=== PATIENT | male | born 1960 | race American Indian/Alaskan Native ===

== ENCOUNTER 2017-07-31 14:02 | Inpatient (IN) | payer MEDICARE ==
--- NOTE | 2017-07-31 14:44 | History and Physical Report ---
History of Present Illness Chief complaint: I cant stop drinking, and i feel sick History of present illness: 56 YO Male with ETOH Abuse, HTN, HIV, Schizophrenia, Depression, Nicotine Dependence [facility] Withdrawl. Pt seen and evaluated upon arrival. Pt states that he drinks alcohol daily, and will drink whatever he can get. Pt states that his last drink was the day prior to admission. Pt acknowledges that he feels restless, agitated, Anxious, and has difficulty picking up objects due to his hands shaking. Pt also acknowledges loss of appetite, auditory and visual hallucinations, sweating. Pt has experienced the aforementioned symptoms over the past 1-2 days with worsening symptoms over the past 12 hours. Pt acknowledges insomnia and has a headache at this time. Pt found to be in distress, and with ETOH withdrawl. Pt denies SI/HI, or plan. Pt denies desire to harm himself or others. Pt admitted to [facility] for medical [facility]. Past History Past Medical History: HIV/AIDS, hypertension, other (schizophrenia, depression) Past Surgical History: cholecystectomy, hernia repair Social history: smoking, alcohol abuse Family history: hypertension Medications and Allergies Allergies Allergy/AdvReac Type Severity Reaction Status Date / Time No Known Allergies Allergy Unverified 07/31/17 14:18 Home Medications Medication Instructions Recorded Confirmed Last Taken Type Amlodipine Besylate [Norvasc] 10 mg PO 07/31/17 Unknown History Calcium Carbonate [Calcium] 200 mg PO 07/31/17 Unknown History Citalopram Hydrobromide [Celexa] 40 mg PO 07/31/17 Unknown History Darunavir/Cobicistat [Prezcobix 1 each PO 07/31/17 Unknown History 800 mg-150 mg Tablet] Emtricitabine/Tenofov Alafenam 1 each PO 07/31/17 Unknown History [Descovy 200-25 mg Tablet] Mirtazapine [Remeron] 30 mg PO 07/31/17 Unknown History Potassium Chloride 20 meq PO 07/31/17 Unknown History Quetiapine Fumarate [Seroquel Xr] 400 mg PO 07/31/17 Unknown History SEROquel 07/31/17 Unknown History Review of Systems Constitutional: weakness, no weight loss, no weight gain, no fever, no chills Ears, nose, mouth and throat: no ear pain, no ear discharge, no tinnitis, no decreased hearing, no nose pain, no nasal congestion, no nasal discharge Cardiovascular: no chest pain, no orthopnea, no palpitations, no rapid/ irregular heart beat, no edema, no syncope Respiratory: no cough, no cough with sputum, no excessive sputum, no hemoptysis , no shortness of breath Gastrointestinal: nausea, no vomiting, no diarrhea, no constipation, no change in bowel habits, no hematemesis, no coffee ground emesis, no BRBPR, no melena, no hematochezia, no loss of appetite Genitourinary Male: no dysuria, no hematuria, no flank pain, no discharge, no urinary frequency, no urinary hesitancy Rectal: no pain, no incontinence, no bleeding Musculoskeletal: no neck stiffness, no neck pain, no shooting arm pain, no arm numbness/tingling, no low back pain, no shooting leg pain Integumentary: no rash, no pruritis, no redness, no sores, no wounds Neurological: tremors, headaches, no numbness, no tingling, no seizures, no syncope, no ataxia, no lack of coordination, no convulsions, no aphasia, no change in speech, no change in mentation Psychiatric: anxiety, insomnia, change in appetite, hallucinations, depression, irritability, sadness/tearfullness, mood swings, no memory loss, no change in sleep habits, no hypersomnia Endocrine: no cold intolerance, no heat intolerance, no polyphagia, no excessive thirst, no polydipsia, no polyuria, no nocturia, no excessive sweating Hematologic/Lymphatic: no easy bruising, no easy bleeding, no lymphadenopathy, no lymphedema Allergic/Immunologic: no urticaria, no allergic rhinitis, no persistent infections, no anaphylaxis, no angioedema Exam - Constitutional General appearance: Present: mild distress - EENT Eyes: Present: PERRL ENT: hearing intact, clear oral mucosa - Neck Neck: Present: supple, normal ROM - Respiratory Respiratory effort: normal Respiratory: bilateral: CTA - Cardiovascular Heart Sounds: Present: S1 & S2. Absent: rub, click - Extremities Extremities: pulses symmetrical, No edema Peripheral Pulses: within normal limits - Abdominal General gastrointestinal: Present: soft, non-tender, non-distended, normal bowel sounds Male genitourinary: Present: normal - Integumentary Integumentary: Present: clear, dry, decreased turgor - Musculoskeletal Musculoskeletal: gait normal, strength equal bilaterally - Psychiatric Psychiatric: agitated - Neurologic Neurologic: CNII-XII intact, moves all extremities Results - Labs CBC & Chem 7: 07/31/17 15:58 Assessment and Plan - Patient Problems (1) Alcohol withdrawal Current Visit: Yes Status: Acute Qualifiers: Complication of substance-induced condition: with perceptual disturbance Qualified Code(s): F10.232 - Alcohol dependence with withdrawal with perceptual disturbance Plan to address problem: ETOH Withdrawl protocol: Librium taper, Banana bag, anti emetic therapy, CBC, CMP, BAL. (2) Nicotine dependence Current Visit: Yes Status: Acute Qualifiers: Substance use status: in withdrawal Plan to address problem: supportive care, Pt declines to pick quit date, smoking cessation counseling. (3) HIV (human immunodeficiency virus infection) Current Visit: Yes Status: Acute Plan to address problem: REsume antiretroviral therapy, outpatient ID F/U (4) HTN (hypertension) Current Visit: Yes Status: Acute Qualifiers: Hypertension type: essential hypertension Qualified Code(s): I10 - Essential (primary) hypertension Plan to address problem: Monitor BP q shift, IV hydralazine prn (5) Schizophrenia Current Visit: Yes Status: Acute Qualifiers: Schizophrenia type: disorganized schizophrenia Qualified Code(s): F20.1 - Disorganized schizophrenia Plan to address problem: Resume prehospital medication, supportive care, (6) DVT prophylaxis Current Visit: Yes Status: Acute Plan to address problem: SCD to BLE while in bed
[2017-07-31] MEDS ORDERED: SODIUM CHLORIDE FLUSH SYRINGE 10 ML IV PRN (15:00)
[2017-07-31] MEDS ORDERED: VISTARIL PO PRN (15:00)
[2017-07-31] MEDS ORDERED: TYLENOL PO PRN (15:00)
[2017-07-31] MEDS ORDERED: BENTYL PO PRN (15:00)
[2017-07-31] MEDS ORDERED: ATIVAN IV PRN (15:00)
[2017-07-31] MEDS ORDERED: PROVENTIL IH PRN (15:00)
[2017-07-31] MEDS ORDERED: ROBAXIN PO PRN (15:00)
[2017-07-31] MEDS ORDERED: ZOFRAN IV PRN (15:00)
[2017-07-31] MEDS: 1: FOLVITE 1 MG, INFUVITE 10 ML, VITAMIN B-1 100 MG in NACL 0.9% 1000 ML 988.8 ML 2: NA IV SCH (16:26)
[2017-07-31 16:32] LABS: Basophils % (Auto) 0.3 % (0.0-1.8); Eosinophils # (Auto) 0.2 K/mm3 (0.0-0.4); Eosinophils % (Auto) 3.5 % (0.0-4.3); Hematocrit 38.1 % (35.5-45.6); Hemoglobin 12.4 gm/dl (11.8-15.2); Lymphocytes # (Auto) 1.8 K/mm3 (1.2-5.4); Lymphocytes % (Auto) 32.3 % (13.4-35.0); Mean Corpuscular HGB Conc 33 % (32-34); Mean Corpuscular Hemoglobin 36 pg (28-32); Mean Corpuscular Volume 111 fl (84-94); Monocytes # (Auto) 0.5 K/mm3 (0.0-0.8); Monocytes % (Auto) 8.1 % (0.0-7.3); Platelet Count 167 K/mm3 (140-440); Red Blood Count 3.45 M/mm3 (3.65-5.03)
[2017-07-31 16:36] LABS: Alanine Aminotransferase 23 units/L (7-56); Albumin 3.7 g/dL (3.9-5); BUN/Creatinine Ratio 13; Blood Urea Nitrogen 10 mg/dL (9-20); Calcium 8.5 mg/dL (8.4-10.2); Hemolysis Index 12
[2017-07-31 17:09] LABS: Amphetamine Screen,Urine PRESUMPTIVE NEGATIVE; Benzodiazepines Screen,Urine PRESUMPTIVE NEGATIVE; Cannabinoid Screen,Urine PRESUMPTIVE NEGATIVE; Cocaine Screen,Urine PRESUMPTIVE NEGATIVE; Methadone Screen,Urine PRESUMPTIVE NEGATIVE; Opiate Screen,Urine PRESUMPTIVE NEGATIVE
[2017-07-31] MEDS: LIBRIUM PO SCH ×2 (17:20→23:41)
[2017-07-31] MEDS: PEPCID PO SCH (21:06)
[2017-07-31] MEDS: SODIUM CHLORIDE FLUSH SYRINGE 10 ML IV SCH (21:06)
--- NOTE | 2017-07-31 22:47 | XRay Report ---
FINAL REPORT PROCEDURE: XR CHEST 1V AP TECHNIQUE: Chest radiograph anteroposterior view. CPT 82153 HISTORY: dypsnea COMPARISON: No prior studies are available for comparison. FINDINGS: Limited study due to suboptimal inspiration and patient rotation to the right.. Subsegment atelectatic changes are noted in bilateral lung bases. Bilateral pleural spaces are clear. Cardiac size is within normal limits. IMPRESSION: Limited study. Subsegmental atelectatic changes bilateral lung bases. Any underlying infiltrates cannot be excluded. A two view chest study is recommended whenever the patient's condition permits..
[2017-08-01] MEDS: 1: FOLVITE 1 MG, INFUVITE 10 ML, VITAMIN B-1 100 MG in NACL 0.9% 1000 ML 988.8 ML 2: NA IV SCH ×3 (01:30→18:56)
[2017-08-01] MEDS: LIBRIUM PO SCH ×2 (05:00→11:49)
[2017-08-01] MEDS ORDERED: NACL 0.9% 1000 ML 1,000 ML ONE (08:09)
[2017-08-01] MEDS: PEPCID PO SCH ×3 (08:16→21:16)
[2017-08-01] MEDS: SODIUM CHLORIDE FLUSH SYRINGE 10 ML IV SCH ×3 (08:18→21:17)
[2017-08-02] MEDS ORDERED: NACL 0.9% 1000 ML 1,000 ML ONE ×2 (04:14→08:58)
[2017-08-02] MEDS: 1: FOLVITE 1 MG, INFUVITE 10 ML, VITAMIN B-1 100 MG in NACL 0.9% 1000 ML 988.8 ML 2: NA IV SCH ×3 (04:28→16:34)
--- NOTE | 2017-08-02 08:23 | Progress Note ---
Assessment and Plan Assessment and plan: Patient is a 56 yo man with ETOH Abuse, HTN, HIV, Schizophrenia, Depression, Nicotine Dependence [facility]. [facility] ([facility] -Alcohol withdrawal: ETOH Withdrawl protocol: Librium taper, Banana bag, anti emetic therapy, CBC, CMP, BAL. -Nicotine dependence: supportive care, Pt declines to pick quit date, smoking cessation counseling. -HIV (human immunodeficiency virus infection): REsume antiretroviral therapy, outpatient ID F/U - HTN (hypertension): Monitor BP q shift, IV hydralazine prn -Schizophrenia: He denies SI/HI, Resume prehospital medication, supportive care , -DVT prophylaxis: ambulation, SCD to BLE while in bed History Interval history: Patient was seen and examined. Follow-up on current diagnosis. Overnight uneventful. Patient denies any chest pain, shortness breath, nausea/vomiting or severe headaches. Imaging, nursing note, chart, labs and old chart reviewed. Discussed with patient. Hospitalist Physical - Physical exam Narrative exam: GEN: WDWN, NAD, Awake, Alert, Orientated HEENT: NCAT, EOMI, PERRL, OP Clear NECK: supple, no adenopathy, no thyromegaly, no JVD CVS/HEART: RRR, normal S1S2, pulses present bilaterally CHEST/LUNGS: CTA B, Symmetrical chest expansion, good air entry bilaterally GI/Abdomen: soft, NTND, good bowel sounds, no guarding or rebound /Bladder: no suprapubic tenderness, no CVA or paraspinal tenderness EXT/Skin: no c/c/e, no obvious rash MSK: FROM x 4 Neuro: CN 2-12 grossly intact, no new focal deficits Psych: calm - Constitutional Vitals: Temp Pulse Resp BP Pulse Ox 98.4 F 93 H 16 115/77 97 08/01/17 23:56 08/01/17 23:56 08/01/17 23:56 08/01/17 23:56 08/01/17 23:56 General appearance: Absent: mild distress Results - Labs CBC & Chem 7: 07/31/17 15:58 07/31/17 15:58 Labs: Laboratory Last Values WBC 5.7 K/mm3 (4.5-11.0) 07/31/17 15:58 RBC 3.45 M/mm3 (3.65-5.03) L 07/31/17 15:58 Hgb 12.4 gm/dl (11.8-15.2) 07/31/17 15:58 Hct 38.1 % (35.5-45.6) 07/31/17 15:58 MCV 111 fl (84-94) H 07/31/17 15:58 MCH 36 pg (28-32) H 07/31/17 15:58 MCHC 33 % (32-34) 07/31/17 15:58 RDW 14.0 % (13.2-15.2) 07/31/17 15:58 Plt Count 167 K/mm3 (140-440) 07/31/17 15:58 Lymph % (Auto) 32.3 % (13.4-35.0) 07/31/17 15:58 Mcclain % (Auto) 8.1 % (0.0-7.3) H 07/31/17 15:58 Eos % (Auto) 3.5 % (0.0-4.3) 07/31/17 15:58 Baso % (Auto) 0.3 % (0.0-1.8) 07/31/17 15:58 Lymph # 1.8 K/mm3 (1.2-5.4) 07/31/17 15:58 Mcclain # 0.5 K/mm3 (0.0-0.8) 07/31/17 15:58 Eos # 0.2 K/mm3 (0.0-0.4) 07/31/17 15:58 Baso # 0.0 K/mm3 (0.0-0.1) 07/31/17 15:58 Seg Neutrophils % 55.8 % (40.0-70.0) 07/31/17 15:58 Seg Neutrophils # 3.2 K/mm3 (1.8-7.7) 07/31/17 15:58 Sodium 138 mmol/L (137-145) 07/31/17 15:58 Potassium 3.6 mmol/L (3.6-5.0) 07/31/17 15:58 Chloride 100.5 mmol/L (98-107) 07/31/17 15:58 Carbon Dioxide 24 mmol/L (22-30) 07/31/17 15:58 Anion Gap 17 mmol/L 07/31/17 15:58 BUN 10 mg/dL (9-20) 07/31/17 15:58 Creatinine 0.8 mg/dL (0.8-1.5) 07/31/17 15:58 Estimated GFR > 60 ml/min 07/31/17 15:58 BUN/Creatinine Ratio 13 % 07/31/17 15:58 Glucose 82 mg/dL (75-100) 07/31/17 15:58 Calcium 8.5 mg/dL (8.4-10.2) 07/31/17 15:58 Total Bilirubin 0.30 mg/dL (0.1-1.2) 07/31/17 15:58 AST 47 units/L (5-40) H 07/31/17 15:58 ALT 23 units/L (7-56) 07/31/17 15:58 Alkaline Phosphatase 145 units/L (35-129) H 07/31/17 15:58 Total Protein 7.2 g/dL (6.3-8.2) 07/31/17 15:58 Albumin 3.7 g/dL (3.9-5) L 07/31/17 15:58 Albumin/Globulin Ratio 1.1 % 07/31/17 15:58 Urine Opiates Screen Presumptive negative 07/31/17 Unknown Urine Methadone Screen Presumptive negative 07/31/17 Unknown Ur Barbiturates Screen Presumptive negative 07/31/17 Unknown Ur Phencyclidine Scrn Presumptive negative 07/31/17 Unknown Ur Amphetamines Screen Presumptive negative 07/31/17 Unknown U Benzodiazepines Scrn Presumptive negative 07/31/17 Unknown Urine Cocaine Screen Presumptive negative 07/31/17 Unknown U Marijuana (THC) Screen Presumptive negative 07/31/17 Unknown Drugs of Abuse Note Disclamer 07/31/17 Unknown Plasma/Serum Alcohol < 0.01 % (0-0.07) 07/31/17 15:58
[2017-08-02] MEDS: PEPCID PO SCH ×2 (09:03→22:17)
[2017-08-02] MEDS: SODIUM CHLORIDE FLUSH SYRINGE 10 ML IV SCH ×2 (09:04→22:18)
[2017-08-03] MEDS: 1: FOLVITE 1 MG, INFUVITE 10 ML, VITAMIN B-1 100 MG in NACL 0.9% 1000 ML 988.8 ML 2: NA IV SCH ×2 (00:52→08:17)
[2017-08-03] MEDS: PEPCID PO SCH (09:39)
[2017-08-03] MEDS: SODIUM CHLORIDE FLUSH SYRINGE 10 ML IV SCH (09:42)
--- NOTE | 2017-08-03 11:13 | Discharge Summary ---
Providers - Providers Date of Admission: 07/31/17 15:42 Date of discharge: 08/03/17 Attending physician: ZAY OLIVIER Primary care physician: THOMAS GTZ Hospitalization Condition: Stable Hospital course: Patient is a 56 yo man with ETOH Abuse, HTN, HIV, Schizophrenia, Depression, Nicotine Dependence [facility]. Pt [facility] to [facility] for [facility] ([facility]). -Alcohol withdrawal: ETOH Withdrawl protocol: Librium taper, Banana bag, anti emetic therapy, CBC, CMP, BAL. -Nicotine dependence: supportive care, Pt declines to pick quit date, smoking cessation counseling. -HIV (human immunodeficiency virus infection): REsume antiretroviral therapy, outpatient ID F/U - HTN (hypertension): Monitor BP q shift, IV hydralazine prn -Schizophrenia: He denies SI/HI, Resume prehospital medication, supportive care , -DVT prophylaxis: ambulation, SCD to BLE while in bed Disposition: DC-01 TO HOME OR SELFCARE Time spent for discharge: 32 minutes Core Measure Documentation - Palliative Care Palliative Care/ Comfort Measures: Not Applicable - Core Measures Any of the following diagnoses?: none - VTE Discharge Requirements Deep Vein Thrombosis/Pulmonary Embolism Present on Admission: No Has pt received <5 days of overlap therapy or INR<2.0: No Anticoagulant overlap therapy prescribed at discharge: No Contraindication No Overlap Therapy order at DC: Not Indicated Exam - Physical Exam Narrative exam: GEN: WDWN, NAD, Awake, Alert, Orientated x 3 HEENT: NCAT, EOMI, PERRL, OP Clear NECK: supple, no adenopathy, no thyromegaly, no JVD CVS/HEART: RRR, normal S1S2, pulses present bilaterally CHEST/LUNGS: CTA B, Symmetrical chest expansion, good air entry bilaterally GI/Abdomen: soft, NTND, good bowel sounds, no guarding or rebound /Bladder: no suprapubic tenderness, no CVA or paraspinal tenderness EXT/Skin: no c/c/e, no obvious rash MSK: FROM x 4 Neuro: CN 2-12 grossly intact, no new focal deficits Psych: calm - Constitutional Vitals: Temp Pulse Resp BP Pulse Ox 97.6 F 84 18 121/80 97 08/03/17 03:48 08/03/17 03:48 08/03/17 03:48 08/03/17 03:48 08/03/17 03:48 Plan Activity: other (no strenous activities until cleared by pcp) Diet: regular Follow up with: THOMAS GTZ MD [Primary Care Provider] - 7 Days Prescriptions: Thiamine [Vitamin B-1] 100 mg PO QDAY #30 tablet
[2017-08-03 12:20] VITALS: BP 113/79
== END 2017-08-03 13:00 | disposition home or self-care (01) | DRG 896 ==
LOC: UNDOADMIN 14:02 → 2B-ACE 14:02 → MSU 15:42
PROVIDERS: ADMIT Internal Medicine; ATTEND Internal Medicine
DX: F10.239 Alcohol dependence with withdrawal, unspecified (principal); B20 Human immunodeficiency virus [HIV] disease; R51 Headache; I10 Essential (primary) hypertension; F20.9 Schizophrenia, unspecified; F32.9 Major depressive disorder, single episode, unspecified; F17.200 Nicotine dependence, unspecified, uncomplicated; Z71.6 Tobacco abuse counseling; Z90.49 Acquired absence of other specified parts of digestive tract; Z82.49 Family history of ischemic heart disease and other diseases of the circulatory system; Z79.899 Other long term (current) drug therapy
CPT/HCPCS: 36415; 71045; 80053; 80307; 80320; 85025; 93005; 93010; G0480; J3411; J7030

== ENCOUNTER 2019-10-27 16:03 | Emergency (ER) | payer MEDICARE ==
[2019-10-27 19:21] LABS: Alanine Aminotransferase 11 units/L (7-56); Albumin 3.3 g/dL (3.9-5); BUN/Creatinine Ratio 9; Blood Urea Nitrogen 7 mg/dL (9-20); Calcium 8.6 mg/dL (8.4-10.2); Hemolysis Index 6
[2019-10-27 19:30] LABS: Basophils % (Auto) 0.4 % (0.0-1.8); Eosinophils # (Auto) 0.1 K/mm3 (0.0-0.4); Eosinophils % (Auto) 1.7 % (0.0-4.3); Hemoglobin 11.8 gm/dl (11.8-15.2); Lymphocytes # (Auto) 1.9 K/mm3 (1.2-5.4); Lymphocytes % (Auto) 33.7 % (13.4-35.0); Mean Corpuscular HGB Conc 33 % (32-34); Mean Corpuscular Volume 111 fl (84-94); Monocytes # (Auto) 0.5 K/mm3 (0.0-0.8); Monocytes % (Auto) 8.7 % (0.0-7.3); Platelet Count 301 K/mm3 (140-440); Red Blood Count 3.25 M/mm3 (3.65-5.03); Red Cell Distribution Width 14.9 % (13.2-15.2)
[2019-10-27] MEDS ORDERED: LORazepam 2 MG/ML VIAL IV PRN ×3 (20:17)
[2019-10-27] MEDS ORDERED: THIAMINE 100 MG, FOLIC ACID 1 MG, MULTIPLE VITAMIN INJ, ADULT 10 ML in SODIUM CHLORIDE ... IV ONE (20:18)
[2019-10-27 20:42] LABS: Amphetamine Screen,Urine PRESUMPTIVE NEGATIVE; Benzodiazepines Screen,Urine PRESUMPTIVE NEGATIVE; Cannabinoid Screen,Urine PRESUMPTIVE NEGATIVE; Cocaine Screen,Urine PRESUMPTIVE NEGATIVE; Methadone Screen,Urine PRESUMPTIVE NEGATIVE; Opiate Screen,Urine PRESUMPTIVE NEGATIVE
[2019-10-27 20:46] LABS: Bilirubin,Urine NEG (Negative); Blood,Urine SM (Negative); Color,Urine Amber (Yellow); Hyaline Casts,Urine 1 /LPF; Mucus,Urine 3+ /HPF
--- NOTE | 2019-10-27 23:50 | Emergency Department Report ---
ED General Adult HPI - General Chief complaint: Medical Clearance Stated complaint: DETOX Time Seen by Provider: 10/27/19 20:05 Source: patient Mode of arrival: Ambulatory Limitations: No Limitations - History of Present Illness Initial comments: Is a 59-year-old F [place] male who has a past medical history of alcohol abuse who drinks approximately a pint and a half of vodka daily who states he would like to go to a facility for alcohol detox. Patient denies any history of seizure activity or DTs when stopping alcohol. States he does have some minor shaking at times. Patient's last drink was at approximately 4 AM last night and states he drank extremely heavily. Patient denies any nausea vomiting abdominal pain cough cold or congestion. Patient states he is had alcohol problems for the past 15 years which is now interfering with his life. Patient states he got lost last week while driving intoxicated. Severity scale (0 -10): 0 - Related Data Home Medications Medication Instructions Recorded Confirmed Last Taken Amlodipine Besylate [Norvasc] 10 mg PO DAILY 07/31/17 07/31/17 07/31/17 09:00 Calcium Carbonate/Vitamin D3 1 each PO DAILY 07/31/17 07/31/17 07/31/17 09:00 [Calcium 600-Vit D3 400 Tablet] Citalopram Hydrobromide [Celexa] 40 mg PO DAILY 07/31/17 07/31/17 07/31/17 09:00 Darunavir/Cobicistat [Prezcobix 1 each PO DAILY 07/31/17 07/31/17 07/31/17 09:00 800 mg-150 mg Tablet] Emtricitabine/Tenofov Alafenam 1 each PO DAILY 07/31/17 07/31/17 07/31/17 09:00 [Descovy 200-25 mg (Nf)] Mirtazapine [Remeron 30mg TAB] 30 mg PO HS 07/31/17 07/31/17 07/30/17 21:00 Potassium Chloride 20 meq PO DAILY 07/31/17 07/31/17 07/31/17 09:00 Quetiapine Fumarate [SEROquel Xr] 400 mg PO HS 07/31/17 07/31/17 07/30/17 21:00 Previous Rx's Medication Instructions Recorded Last Taken Type Thiamine [Vitamin B-1] 100 mg PO QDAY #30 tablet 08/03/17 Unknown Rx Allergies Allergy/AdvReac Type Severity Reaction Status Date / Time No Known Allergies Allergy Unverified 07/31/17 14:18 ED Review of Systems ROS: Stated complaint: DETOX Other details as noted in HPI Comment: All other systems reviewed and negative ED Past Medical Hx - Past Medical History Hx Hypertension: Yes Hx Congestive Heart Failure: No Hx Diabetes: No Hx Asthma: No Hx COPD: No Hx HIV: Yes - Surgical History Past Surgical History?: Yes Additional Surgical History: Gallbladder removed - Social History Smoking Status: Current Every Day Smoker Substance Use Type: Alcohol - Medications Home Medications: Home Medications Medication Instructions Recorded Confirmed Last Taken Type Amlodipine Besylate [Norvasc] 10 mg PO DAILY 07/31/17 07/31/17 07/31/17 09:00 History Calcium Carbonate/Vitamin D3 1 each PO DAILY 07/31/17 07/31/17 07/31/17 09:00 History [Calcium 600-Vit D3 400 Tablet] Citalopram Hydrobromide [Celexa] 40 mg PO DAILY 07/31/17 07/31/17 07/31/17 09:00 History Darunavir/Cobicistat [Prezcobix 1 each PO DAILY 07/31/17 07/31/17 07/31/17 09:00 History 800 mg-150 mg Tablet] Emtricitabine/Tenofov Alafenam 1 each PO DAILY 07/31/17 07/31/17 07/31/17 09:00 History [Descovy 200-25 mg (Nf)] Mirtazapine [Remeron 30mg TAB] 30 mg PO HS 07/31/17 07/31/17 07/30/17 21:00 History Potassium Chloride 20 meq PO DAILY 07/31/17 07/31/17 07/31/17 09:00 History Quetiapine Fumarate [SEROquel Xr] 400 mg PO HS 07/31/17 07/31/17 07/30/17 21:00 History Thiamine [Vitamin B-1] 100 mg PO QDAY #30 tablet 08/03/17 Unknown Rx ED Physical Exam - General Limitations: No Limitations General appearance: alert, in no apparent distress - Head Head exam: Present: atraumatic, normocephalic - Eye Eye exam: Present: normal appearance, PERRL, EOMI - ENT ENT exam: Present: mucous membranes moist - Neck Neck exam: Present: normal inspection - Respiratory Respiratory exam: Present: normal lung sounds bilaterally. Absent: respiratory distress, wheezes, rales, rhonchi - Cardiovascular Cardiovascular Exam: Present: regular rate, normal rhythm, normal heart sounds. Absent: systolic murmur, diastolic murmur, rubs, gallop - GI/Abdominal GI/Abdominal exam: Present: soft, normal bowel sounds. Absent: distended, tenderness, guarding, rebound - Rectal Rectal exam: Present: deferred - Extremities Exam Extremities exam: Present: normal inspection - Back Exam Back exam: Present: normal inspection - Neurological Exam Neurological exam: Present: alert, oriented X3 - Psychiatric Psychiatric exam: Present: normal affect, normal mood - Skin Skin exam: Present: warm, dry, intact, normal color. Absent: rash ED Course Vital Signs 10/27/19 10/27/19 17:18 20:03 Temperature 98.5 F 98.8 F Pulse Rate 110 H 124 H Respiratory 20 18 Rate Blood Pressure 105/74 108/80 [Right] O2 Sat by Pulse 98 98 Oximetry - Reevaluation(s) Reevaluation #1: 10/27/19 23:49 Patient is medically cleared at this time. Please see the mental health assessment note which is as follows MAR LAFLEUR Male : 1960 [facility] [id number] 10/27/19 23:32 - MH Supervisor Edging's Note by DOUG GAN Acct Num: [id number] : 1960 Patient Age: 59 Pt is a 59 yo AA male presenting to ED for MHE, as pt reported alcohol abuse. During ax, pt presented with cooperative behaviors, amxious mood and congruent affect. Pt is requesting alcohol detox. Pt denies hx of attempts. Pt denies SI/HI. Pt denies A/V H. Pt reports hx of Depression, Paranoid Schizphrenia Pt reports alcohol abuse. Pt reports drinking 1/2 pint to a pint daily for nine months. Pt reports onset age 14. Pt denies drug use or abuse. Pt reports denies hx of chronic withdrawal symptoms, including seizures. Pt does not present with any active withdrawal symptoms currently but reports feeling uncomfortable. Pt reports stable housing. Pt lives alone. Pt denies legal issues. 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 Recommendations: At this time pt presents with alcohol abuse. Pt does not meet criteria for IP Tx. Pt is seeking medical clearnance. Pt meets criteria for PHP . Pt requested chart faxed to [place]. Initialized on 10/27/19 23:32 - END OF NOTE ED Medical Decision Making - Lab Data Result diagrams: 10/27/19 18:40 10/27/19 18:40 Lab Results 10/27/19 10/27/19 10/27/19 Range/Units 18:40 18:40 18:40 WBC 5.5 (4.5-11.0) K/mm3 RBC 3.25 L (3.65-5.03) M/mm3 Hgb 11.8 (11.8-15.2) gm/dl Hct 36.0 (35.5-45.6) % MCV 111 H (84-94) fl MCH 36 H (28-32) pg MCHC 33 (32-34) % RDW 14.9 (13.2-15.2) % Plt Count 301 (140-440) K/mm3 Lymph % (Auto) 33.7 (13.4-35.0) % Knox % (Auto) 8.7 H (0.0-7.3) % Eos % (Auto) 1.7 (0.0-4.3) % Baso % (Auto) 0.4 (0.0-1.8) % Lymph # 1.9 (1.2-5.4) K/mm3 Knox # 0.5 (0.0-0.8) K/mm3 Eos # 0.1 (0.0-0.4) K/mm3 Baso # 0.0 (0.0-0.1) K/mm3 Seg Neutrophils % 55.5 (40.0-70.0) % Seg Neutrophils # 3.1 (1.8-7.7) K/mm3 Sodium 141 (137-145) mmol/L Potassium 3.9 (3.6-5.0) mmol/L Chloride 103.7 (98-107) mmol/L Carbon Dioxide 21 L (22-30) mmol/L Anion Gap 20 mmol/L BUN 7 L (9-20) mg/dL Creatinine 0.8 (0.8-1.3) mg/dL Estimated GFR > 60 ml/min BUN/Creatinine Ratio 9 % Glucose 70 L (75-100) mg/dL Calcium 8.6 (8.4-10.2) mg/dL Total Bilirubin 0.30 (0.1-1.2) mg/dL AST 32 (5-40) units/L ALT 11 (7-56) units/L Alkaline Phosphatase 148 H (35-129) units/L Total Protein 7.7 (6.3-8.2) g/dL Albumin 3.3 L (3.9-5) g/dL Albumin/Globulin Ratio 0.8 % Urine Color (Yellow) Urine Turbidity (Clear) Urine pH (5.0-7.0) Ur Specific Trimble (1.003-1.030) Urine Protein (Negative) mg/dL Urine Glucose (UA) (Negative) mg/dL Urine Ketones (Negative) mg/dL Urine Blood (Negative) Urine Nitrite (Negative) Urine Bilirubin (Negative) Urine Urobilinogen (<2.0) mg/dL Ur Leukocyte Esterase (Negative) Urine WBC (Auto) (0.0-6.0) /HPF Urine RBC (Auto) (0.0-6.0) /HPF U Epithel Cells (Auto) (0-13.0) /HPF Hyaline Casts /LPF Urine Mucus /HPF Salicylates < 0.3 L (2.8-20.0) mg/dL Urine Opiates Screen Urine Methadone Screen Acetaminophen (10.0-30.0) ug/mL Ur Barbiturates Screen Ur Phencyclidine Scrn Ur Amphetamines Screen U Benzodiazepines Scrn Urine Cocaine Screen U Marijuana (THC) Screen Drugs of Abuse Note Plasma/Serum Alcohol (0-0.07) % 10/27/19 10/27/19 10/27/19 Range/Units 18:40 18:40 Unknown WBC (4.5-11.0) K/mm3 RBC (3.65-5.03) M/mm3 Hgb (11.8-15.2) gm/dl Hct (35.5-45.6) % MCV (84-94) fl MCH (28-32) pg MCHC (32-34) % RDW (13.2-15.2) % Plt Count (140-440) K/mm3 Lymph % (Auto) (13.4-35.0) % Knox % (Auto) (0.0-7.3) % Eos % (Auto) (0.0-4.3) % Baso % (Auto) (0.0-1.8) % Lymph # (1.2-5.4) K/mm3 Knox # (0.0-0.8) K/mm3 Eos # (0.0-0.4) K/mm3 Baso # (0.0-0.1) K/mm3 Seg Neutrophils % (40.0-70.0) % Seg Neutrophils # (1.8-7.7) K/mm3 Sodium (137-145) mmol/L Potassium (3.6-5.0) mmol/L Chloride (98-107) mmol/L Carbon Dioxide (22-30) mmol/L Anion Gap mmol/L BUN (9-20) mg/dL Creatinine (0.8-1.3) mg/dL Estimated GFR ml/min BUN/Creatinine Ratio % Glucose (75-100) mg/dL Calcium (8.4-10.2) mg/dL Total Bilirubin (0.1-1.2) mg/dL AST (5-40) units/L ALT (7-56) units/L Alkaline Phosphatase (35-129) units/L Total Protein (6.3-8.2) g/dL Albumin (3.9-5) g/dL Albumin/Globulin Ratio % Urine Color Cinthya (Yellow) Urine Turbidity Clear (Clear) Urine pH 6.0 (5.0-7.0) Ur Specific Trimble 1.017 (1.003-1.030) Urine Protein 30 mg/dl (Negative) mg/dL Urine Glucose (UA) Neg (Negative) mg/dL Urine Ketones Tr (Negative) mg/dL Urine Blood Sm (Negative) Urine Nitrite Neg (Negative) Urine Bilirubin Neg (Negative) Urine Urobilinogen 4.0 (<2.0) mg/dL Ur Leukocyte Esterase Neg (Negative) Urine WBC (Auto) 8.0 H (0.0-6.0) /HPF Urine RBC (Auto) 17.0 (0.0-6.0) /HPF U Epithel Cells (Auto) 1.0 (0-13.0) /HPF Hyaline Casts 1 /LPF Urine Mucus 3+ /HPF Salicylates (2.8-20.0) mg/dL Urine Opiates Screen Urine Methadone Screen Acetaminophen 5.0 L (10.0-30.0) ug/mL Ur Barbiturates Screen Ur Phencyclidine Scrn Ur Amphetamines Screen U Benzodiazepines Scrn Urine Cocaine Screen U Marijuana (THC) Screen Drugs of Abuse Note Plasma/Serum Alcohol 0.20 H (0-0.07) % 10/27/19 Range/Units Unknown WBC (4.5-11.0) K/mm3 RBC (3.65-5.03) M/mm3 Hgb (11.8-15.2) gm/dl Hct (35.5-45.6) % MCV (84-94) fl MCH (28-32) pg MCHC (32-34) % RDW (13.2-15.2) % Plt Count (140-440) K/mm3 Lymph % (Auto) (13.4-35.0) % Knox % (Auto) (0.0-7.3) % Eos % (Auto) (0.0-4.3) % Baso % (Auto) (0.0-1.8) % Lymph # (1.2-5.4) K/mm3 Knox # (0.0-0.8) K/mm3 Eos # (0.0-0.4) K/mm3 Baso # (0.0-0.1) K/mm3 Seg Neutrophils % (40.0-70.0) % Seg Neutrophils # (1.8-7.7) K/mm3 Sodium (137-145) mmol/L Potassium (3.6-5.0) mmol/L Chloride (98-107) mmol/L Carbon Dioxide (22-30) mmol/L Anion Gap mmol/L BUN (9-20) mg/dL Creatinine (0.8-1.3) mg/dL Estimated GFR ml/min BUN/Creatinine Ratio % Glucose (75-100) mg/dL Calcium (8.4-10.2) mg/dL Total Bilirubin (0.1-1.2) mg/dL AST (5-40) units/L ALT (7-56) units/L Alkaline Phosphatase (35-129) units/L Total Protein (6.3-8.2) g/dL Albumin (3.9-5) g/dL Albumin/Globulin Ratio % Urine Color (Yellow) Urine Turbidity (Clear) Urine pH (5.0-7.0) Ur Specific Trimble (1.003-1.030) Urine Protein (Negative) mg/dL Urine Glucose (UA) (Negative) mg/dL Urine Ketones (Negative) mg/dL Urine Blood (Negative) Urine Nitrite (Negative) Urine Bilirubin (Negative) Urine Urobilinogen (<2.0) mg/dL Ur Leukocyte Esterase (Negative) Urine WBC (Auto) (0.0-6.0) /HPF Urine RBC (Auto) (0.0-6.0) /HPF U Epithel Cells (Auto) (0-13.0) /HPF Hyaline Casts /LPF Urine Mucus /HPF Salicylates (2.8-20.0) mg/dL Urine Opiates Screen Presumptive negative Urine Methadone Screen Presumptive negative Acetaminophen (10.0-30.0) ug/mL Ur Barbiturates Screen Presumptive negative Ur Phencyclidine Scrn Presumptive negative Ur Amphetamines Screen Presumptive negative U Benzodiazepines Scrn Presumptive negative Urine Cocaine Screen Presumptive negative U Marijuana (THC) Screen Presumptive negative Drugs of Abuse Note Disclamer Plasma/Serum Alcohol (0-0.07) % Critical care attestation.: If time is entered above; I have spent that time in minutes in the direct care of this critically ill patient, excluding procedure time. ED Disposition Clinical Impression: Alcohol abuse Disposition: DC-01 TO HOME OR SELFCARE Is pt being admited?: No Does the pt Need Aspirin: No Condition: Stable Additional Instructions: Patient has been medically cleared Referrals: THOMAS GTZ MD [Primary Care Provider] - 3-5 Days
[2019-10-28 02:24] VITALS: BP 120/85
== END 2019-10-28 02:30 | disposition home or self-care (01) ==
LOC: ED 16:03
DX: F10.10 Alcohol abuse, uncomplicated (principal); I10 Essential (primary) hypertension; F17.200 Nicotine dependence, unspecified, uncomplicated; Z21 Asymptomatic human immunodeficiency virus [HIV] infection status; Z98.890 Other specified postprocedural states; Z79.899 Other long term (current) drug therapy
CPT/HCPCS: 36415; 80053; 80307; 81001; 85025; 96365; 99284; J3411; J7030; 80320; G0480